=== PATIENT | female | born 2000 ===

== ENCOUNTER 2021-05-15 13:00 | Outpatient (RCR) | payer BC, MEDICAID, SELFPAY ==
--- NOTE | 2020-12-27 10:51 | MHC.SP.ADU ---
Referring provider: Sravanthi MICHAEL DO Reason for Referral: Ruptured cerebral aneurysm Type of Treatment: 26059 Standardized Cognitive Performance Testing, per hour Date of Plan of Treatment: 12/26/20 Onset of Symptoms/Illness: 06/15/16 Date Treatment Started: 06/15/16 Medical Diagnosis: Ruptured cerebral aneurysm (ICD-10: 160.7 Primary Speech Language Diagnosis: R41.841 Cognitive communication disorder Secondary Speech Language Diagnosis: History Jany Franco is a 20 year old female who was referred to [facility] Speech [facility] hearing Department by her PCP for concerns regarding executive functioning skills. 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 This event left her with cognitive deficits in addition to right sided upper and lower extremity weakness. Jany arrived to her appointment on time accompanied by her mother, Ms. Yaakov Gibson who helped provide the relevant background information included in this report. Immediately following this event, Jany resided at [facility] located in [place], [place] for 5 months where she received intensive speech therapy, occupational therapy, and physical therapy. Jany has continued receiving PT and OT at [facility] regularly to strengthen residual right sided weakness. Jany reported that she also has been receiving speech therapy at the same location, though the consistency of her visits is limited. Jany estimated that she receives speech 1x/month. Ms. Gibson mentioned her concerns regarding Jany's ability to communicate functionally with others. Jany struggles with retelling stories and describing events. She also has difficulty with memory and attention. According to Ms. Gibson, Jany is a bright girl who was part of the [employer] when in school. She is currently a student at [employer] in [place], [place]. Jany is a relatively healthy woman with no other medical issues reported. Medical History: Other: See below Other: Ruptured cerebral aneurysm in 2017 Medication List: Please see in pt chart Recent Hospitalizations: Yes: 2017 Respiratory Needs: Room Air Patient Orientation: Alert & Oriented x 4 Social History: Employment Status: Highest level of education obtained: Completed High School/GED Current Living Situation: Assistive Devices in use: Other Comment: Jany wears a brace on her right lower extremity. Past Speech Language Therapy: Jany reported that she received intensive speech therapy immediately following the event. She reported residing at [facility] in [place], [place] for 5 months where she received ST/OT/PT daily. Now, Jany receives speech therapy 1x/month at [facility] where she is working on story retelling. Other Therapies Seen in Current Calendar Year: Occupational Therapy-Physical Therapy Other: Swallowing History: Dysphagia Specific: Within Functional Limits Comments: No reported difficulty with eating or drinking. Pre-eval Risk for Aspiration: None Pre-evaluation Dietary Consistencies: Regular Pre-eval Liquid Intake: Thin Pre-eval Medication Intake: Whole with Liquid Reported Speech, Language, Cognition difficulties: Understanding Attention Memory Cognition Comments: Jany reported difficulty in the following areas: memory, describing events, and story retell. Assessment Speech Production: Slow Clinical Impression: Did Not Test Observations: Pt noted to speak at a slow rate. It seems this is due to processing time rather than dysarthria or issue with speech production itself. Pt's speech subjectively judged to be 100% intelligible by an unfamiliar yet trained listener. Informal Voice Assessment: Voice Loudness: Normal Voice Nasal Resonance: Normal Voice Oral Resonance: Normal Voice Phonatory-based Quality: Normal Voice Pitch: Normal Voice Other Observations: Clinical Impression: Intact Clinicial Observations: Pt's voice was subjectively judged to be WFL by a trained yet unfamiliar listener. Tests of Cognition: CLQT Clinical Impression: Impaired Observations: The Cognitive Linguistic Quick Test (CLQT) was administered to Jany. This standardized assessment is normed on adults ages 18 through 89 years of age. It assesses 5 cognitive linguistic domains: attention, memory, executive functions, language, and visuospatial skills. In addition, the test allows for determination of a severity rating in each of the 5 domains. Jany achieved the following scores in each domain: Attention: (Symbol cancellation, story retelling, symbol trails, design memory, mazes, and design generation) Score of 175, indicating a mild level of severity Memory: (personal facts, story retelling, generative naming, design memory) Score of 134, indicating a moderate level of severity Executive Functions: (symbol trails, generative naming, mazes, design generation) Score of 25, WFL Language: (personal facts, confrontation naming, story retelling, generative naming ) Score of 26, indicating a moderate level of severity Visuospatial Skills: (symbol cancellation, symbol trails, generative naming, design memory, mazes) Score of 85, WFL Jany achieved a score of 13 on the clock drawing task, indicating no impairment. A total composite severity rating of moderate was achieved. Jany received a score of 3, indicating a mild cognitive impairment. Descriptions of each subtest and performance are as follows: Personal Facts: During this task, the examinee responds verbally to four questions about his or her date of , place of , current age, and current address. Score: 8/8 Symbol Cancellation: During this task, the examinee scans a printed page of symbols that includes target symbols and foil symbols and crosses out each example of the target symbol. Score: 12/12 Confrontation Naming: During this task, the examinee verbally names black and white drawings of 10 common objects. Score: / Clock Drawing: For this task, the examinee is asked to write numbers 1-12 inside a pre-drawn hoonah and draw the hands of the clock to show the time of 10 minutes after 11 o?clock. Score: 13/13 Story Retelling: During a story retelling subtask a short story is read aloud and the examinee is asked to repeat the story. During the Auditory Comprehension subtask the examinee is asked to respond to three pairs of yes/no questions related to the information presented in the story. Score: 2/10 Symbol Trails: In this task, the examinee is asked to complete two trial items before proceeding to the scored item. In trial 1, the examinee is asked to draw lines connecting circles of increasing size. In trial 2, the examinee is asked to draw lines that connect alternating circles and triangles. Each trial item involves a single concept (first size, then shape). The scored item involves both size and shape concepts. The examinee is asked to draw lines that connect alternating circles and triangles of increasing size. Score: 10/10 Generative Naming: This task consists of two subtasks. In the first subtask, the examinee lists as many animals as possible in 1 minute. In the second subtask, the examinee lists as many words beginning with the letter ?m? as possible in 1 minute. Score: 6/9 Design Memory: The examinee is presented with a pair of abstract designs and is given 20 seconds to remember them. The examinee is then presented with six abstract designs on a different stimulus page and is instructed to identify the two designs presented previously. Score: 6/6 Mazes: This task consists of 2 mazes. Each maze is built by bobo that form paths through alleys. The examinee is instructed to draw a line through the alleys of each maze without drawing lines through the bobo of the maze. The examinee is instructed to complete the first maze in one minute and the second maze in 2 minutes. Score: 4/8 Design Generation: In this task, the examinee is asked to draw as many unique designs as possible in a three minute time period, using four straight lines to connect four dots. The dots are always arranged in the same pattern (one dot in each of four corners of a box). Score: 5/13 ASSESSMENT: Based on Jany?s performance during today?s evaluation, she presents with a mild cognitive communication impairment. Jany?s areas of relative strength include executive functioning and visuospatial skills. Jany demonstrated increased difficulty with tasks requiring memory and language. During the Story Retelling subtest, Jany was able to recall the information when provided with yes/no questions, however she had significant difficulty with providing enough facts about the story when asked to retell it on her own. During the Generative Naming task, Jany had no difficulty coming up with different animals. She did however; have difficulty naming items beginning with the letter ?m?, which is a narrower category. While completing the maze subtest, Jany was noted to visually scan the maze before marking it with her pencil. She was unable to complete the second maze in the allotted time, though when given 10 extra seconds she was able to complete it. The design generation task also appeared more difficult for Jany to complete. Some of her designs contained less than four lines, and others were repeated which were unable to be counted towards her final score. Impressions and Recommendations Summary: Impact on Daily Function/Activity Limitations: Daily Activities: Moderate Interpersonal Interactions: Mild Education: Moderate Employment: Mild Community: Mild Prognosis for Improvement: Good Comment: Pt is highly motivated to participate in therapy. She also has a great support system at home. Recommendation for Speech Therapy: Outpatient Speech Therapy Frequency/Duration: Date Range for Service Requested: Time to Reassess: 3 months [facility] Goals: It is recommended that Jany participate in outpatient speech therapy 2x/week to improve overall cognitive skills and functional communication. Short Term Goals: Goal # : Jany will improve her descriptive skills to communicate complete, specific, and meaningful thoughts verbally with 85% accuracy and moderate cues during structured activities. Goal Status: New Goal Goal# : Jany will retell a short story including all components of the Story Grammar Marker with 80% accuracy when provided with a visual aid and mod cues. Goal Status: New Goal Goal # : Jany will listen to 2 or more sentences and answer comprehension questions presented auditorily at 80% accuracy given min cues. Goal Status: New Goal Goal # : Jany will improve memory skills by implementing intrinsic and extrinsic memory strategies with 80% accuracy and mod cues. 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 [facility] [employer]
--- NOTE | 2021-01-24 12:45 | MHC.SLORD ---
Jany was a no show for her scheduled teletherapy speech session this date. E-mail to be sent to patient and her father to confirm next session 01/31 at 10:30am.
--- NOTE | 2021-02-27 15:45 | MHC.SLORD ---
Jany was a no show for her scheduled teletherapy session this date.
--- NOTE | 2021-03-01 11:11 | MHC.SLORD ---
Speech Language Pathology Order Status: This STONE BREAKER received a phone call from Jany's father on 02/28 following Jany's no show to her scheduled teletherapy session on 02/27. He reported that Jany was ready but could not locate the link to the session and he was not home to assist her. Mr. Gibson also indicated that he wishes for Jany to receive 2x/week speech therapy sessions. He further added that he received an e-mail from [facility] [employer] that stated the session was canceled. This STONE BREAKER left Mr. Gibson a voicemail this date and explained that the teletherapy program, [facility], sends a cancellation e-mail when a clinician armstrong a session as a no show . Mr. Gibson was again notified that neither this STONE BREAKER or any other gis developer currently have any additional openings for Jany to receive twice weekly speech therapy sessions. Next session 03/06 at 3pm.
--- NOTE | 2021-05-08 12:08 | MHC.SLORD ---
Speech Language Pathology Order Status: Per [facility] physician office secretary, Jany's parent cancelled her session this date due to having a medical appt. Next teletherapy session 05/15 at 1pm.
== END 2021-06-26 12:41 | disposition home or self-care (01) ==
LOC: HO.SH 13:00
PROVIDERS: Visit Provider Student in an Organized Health Care Education/Training Program
DX: I60.7 Nontraumatic subarachnoid hemorrhage from unspecified intracranial artery (principal); R41.841 Cognitive communication deficit
CPT/HCPCS: 92507; 96125